=== PATIENT | female | born 2000 | race Caucasian/White ===

== ENCOUNTER 2023-04-01 19:28 | Inpatient (IN) | payer OTHER ==
[~2023-04-01] VITALS: Ht 157.5 cm; Wt 88.5 kg
--- NOTE | 2023-04-01 19:30 | NUR ---
BIBA TO BED #9
[2023-04-01 19:33] VITALS: BP 130/79; PULSE 102; RESP 20; TEMP 99.2; O2SAT 97
--- NOTE | 2023-04-01 19:33 | NUR ---
ERMD evaluating patient at this time
[2023-04-01 20:07] LABS: BASOPHILS # (AUTO) 0.1 K/uL (0.00-0.22); BASOPHILS % (AUTO) 0.9 % (0.0-2.0); EOSINOPHILS # (AUTO) 0.1 K/uL (0-0.4); EOSINOPHILS % (AUTO) 1.2 % (0.0-4.0); HEMATOCRIT 27.1 % (36-48); HEMOGLOBIN 9.1 g/dL (12.0-16.0); LYMPHOCYTES # (AUTO) 2.4 K/uL (2.5-16.5); LYMPHOCYTES % (AUTO) 33.3 % (20.5-51.1); MEAN CORPUSCULAR HEMOGLOBIN 27 pg (27-31); MEAN CORPUSCULAR HGB CONC 34 g/dL (33-37); MEAN CORPUSCULAR VOLUME 80.4 fL (80-94); MONOCYTES # (AUTO) 0.5 K/uL (0.8-1.0); MONOCYTES % (AUTO) 6.8 % (1.7-9.3); NEUTROPHILS # (AUTO) 4.2 K/uL (1.8-7.7); NEUTROPHILS % (AUTO) 57.8 % (42.2-75.2); PLATELET COUNT (AUTO) 437 K/uL (140-450); RED BLOOD CELL COUNT(AUTO) 3.37 MIL/uL (4.20-5.40); RED CELL DISTRIBUTION WIDTH 13.6 % (11.6-13.7); WHITE BLOOD COUNT (AUTO) 7.3 K/uL (4.8-10.8)
--- NOTE | 2023-04-01 20:15 | NUR ---
Pt assisted to restroom via wheelchair
[2023-04-01 20:28] LABS: APPEARANCE,URINE SL CLOUDY (CLEAR); BILIRUBIN,URINE NEGATIVE (NEGATIVE); BLOOD, URINE 3+ (NEGATIVE); COLOR,URINE RED (YELLOW); LEUKOCYTE ESTERASE ,URINE 2+ (NEGATIVE); NITRITE, URINE POSITIVE (NEGATIVE); UGLUCOSE NEGATIVE (NEGATIVE)
[2023-04-01 20:47] LABS: RBC,URINE TOO NUMEROUS TO COUN /HPF (0-5)
[2023-04-01 20:53] LABS: ANION GAP 13.3 (8-16); CARBON DIOXIDE 28.3 mmol/L (21-32); CREATININE 0.6 mg/dL (0.6-1.3); POTASSIUM 3.6 mmol/L (3.5-5.1); TOTAL BILIRUBIN 0.2 mg/dL (0.0-1.0)
[2023-04-02] MEDS: MISOPROSTOL 200 MCG TAB PO SCH ×6 (00:14→20:00)
[2023-04-02] MEDS ORDERED: HYDROcodone/APAP 5/325 MG 1 TAB TAB PO PRN (01:30)
[2023-04-02] MEDS ORDERED: ONDANSETRON 4 MG/2 ML VIAL IVP PRN ×2 (01:30→21:45)
[2023-04-02] MEDS: NACL 0.9% 1,000 ML IV SCH ×2 (02:02→14:08)
[2023-04-02 02:15] VITALS: PULSE 80
--- NOTE | 2023-04-02 02:19 | NUR ---
Report given to Shane BARRON
[2023-04-02 02:30] VITALS: PULSE 61; RESP 15
[2023-04-02 04:00] VITALS: BP 90/32; PULSE 61; PULSE 66; RESP 15; TEMP 98.4; O2SAT 99
--- NOTE | 2023-04-02 07:15 | NUR ---
RECEIVED REPORT FROM REFINERY TECHNICIAN NURSE FOR CONTINUITY OF CARE. PT IN BED AT THIS TIME ON HER PHONE. RESPIRATIONS ARE EVEN AND UNLABORED ON ROOM AIR. NO SIGNS OF DISTRESS NOTED. PT IS ALERT AND ORIENTED X4, ABLE TO VERBALIZE NEEDS, ABLE TO FOLLOW COMMANDS. PT IS ON CARDIAC MONITORING AT THIS TIME, SR. ABD IS NONTENDER, NONDISTENDED WITH BOWEL SOUNDS PRESENT IN ALL QUADRANTS. PT IS NPO AT THIS TIME, AWAITING CONSULT WITH DR VALDES. PT IS CONTINENT OF BOWEL AND BLADDER. SKIN IS WARM, DRY, AND INTACT. NO COMPLAINTS OF PAIN OR DISCOMFORT AT THIS TIME. CALL LIGHT WITHIN REACH. ALL SAFETY MEASURES IN PLACE.
[2023-04-02 08:00] VITALS: BP 97/61; PULSE 57; PULSE 80; RESP 17; TEMP 98.9; O2SAT 98
--- NOTE | 2023-04-02 08:39 | NUR ---
PATIENT HAS BEEN SCREENED AND CATEGORIZED LOW NUTRITION RISK. PATIENT WILL BE SEEN WITHIN 7 DAYS OF ADMISSION. 04/09/[address]
--- NOTE | 2023-04-02 09:51 | NUR ---
ADMINISTERED SCHEDULED MEDICATIONS. EDUCATED PT ON MEDS ADMINISTERED. PT VERBALIZED UNDERSTANDING. PT TOLERATED WELL.
--- NOTE | 2023-04-02 11:35 | NUR ---
INFORMED DR VALDES OF CONSULT WITH PT AND MADE HIM AWARE THAT PER DR LESTER, HE WAS WONDERING IF DR VALDES WAS PLANNING TO DO ANY SURGERY ON PT TODAY; PT IS NPO AND STATING SHE IS HUNGRY. PER DR VALDES, HE STATES HE NEEDS TO SEE PT FIRST AND TO CONTINUE WITH NPO AT THIS TIME. DR VALDES STATES HE WILL BE HERE TO SEE PT THIS AFTERNOON. UPDATED PT.
[2023-04-02 12:00] VITALS: BP 107/63; PULSE 56; PULSE 69; RESP 17; TEMP 98.7; O2SAT 100
--- NOTE | 2023-04-02 13:48 | NUR ---
DC [age] YRS OLD FEMALE PATIENT WAS ADMITTED FROM HOME WITH A DX OF RETAINED PRODUCTS OF CONCEPTION. PATIENT HAS NO MEDICAL HX. TRANSVAGINAL US SHOWED HETEROGENEOUS MATERIAL IS PRESENT WITHIN THE ENDOMETRIAL CANAL. ADMINISTERED IVF AND PAIN MEDICATION. CONSULTED WITH DR VALDES OB-CELLAR SUPERVISOR. DC PLAN TO GO HOME WHEN STABLE. CM TO FOLLOW
--- NOTE | 2023-04-02 13:55 | NUR ---
DID ROUNDS ON PT. PT IN BED ON HER PHONE. NO COMPLAINTS OF PAIN OR DISCOMFORT AT THIS TIME.
[2023-04-02 16:00] VITALS: BP 98/62; PULSE 61; PULSE 70; RESP 17; TEMP 98.4; O2SAT 99
--- NOTE | 2023-04-02 17:20 | NUR ---
PT HUNGRY, GETTING ANXIOUS, ASKING WHAT TIME WILL DR VALDES COME AND SEE HER. DR VALDES MADE AWARE. PER DR VALDES, PT WILL NEED SUCTION D&C TONIGHT. WILL UPDATE PT.
--- NOTE | 2023-04-02 19:09 | NUR ---
ENDORSED PT TO ELECTRICAL ENGINEERING TECHNICIAN NURSECARROLL, FOR CONTINUITY OF CARE. PT IS STABLE.
--- NOTE | 2023-04-02 19:10 | NUR ---
RECEIVED REPORT FROM DAY SHIFT NURSE QUETA ÁLVAREZ FOR CONTINUITY OF CARE. PT SITTING IN BED WITH VISITOR AT BEDSIDE. PT A/A/O. AMBULATORY. ABLE TO COMMUNICATE NEEDS. RESPIRATIONS EVEN AND UNLABORED ON RA. NO COMPLAINTS OF PAIN. POC DISCUSSED. PT VERBALIZED UNDERSTANDING. REPORT GIVEN TO BEATRICE KIRAN. CALL LIGHT WITHIN REACH. SAFETY PRECAUTIONS IN PLACE.
--- NOTE | 2023-04-02 19:23 | NUR ---
PT PICKED-UP FOR SURGERY. PT IS STABLE.
[2023-04-02] MEDS ORDERED: SEVOFLURANE 250 ML BTL INH ONE ×2 (20:56)
[2023-04-02] MEDS ORDERED: PROPOFOL 200 MG/20 ML VIAL IV ONE ×4 (20:56→21:30)
[2023-04-02] MEDS ORDERED: KETOROLAC 30 MG/ML VIAL ONE ×3 (20:56→21:22)
[2023-04-02] MEDS ORDERED: ONDANSETRON 4 MG/2 ML VIAL ONE ×3 (20:56→21:21)
[2023-04-02] MEDS ORDERED: fentaNYL citrate 0.05 MG/ML VIAL ONE (20:59)
[2023-04-02] MEDS ORDERED: METOCLOPRAMIDE 10 MG/2 ML INJ VIAL ONE (21:21)
[2023-04-02] MEDS ORDERED: hydrALAZINE 20 MG/ML VIAL IVP PRN (21:45)
[2023-04-02] MEDS ORDERED: LACTATED RINGERS 1,000 ML IV SCH (21:45)
[2023-04-02] MEDS ORDERED: HYDROmorphone 1 MG/ML AMP IVP PRN (21:45)
[2023-04-02] MEDS ORDERED: LABETALOL 20 MG/4 ML VIAL IVP PRN (21:45)
--- NOTE | 2023-04-02 22:30 | NUR ---
PT BACK FROM OR. PT AWAKE, RESPONSIVE. V/S 105/81, 94, 97.9, 20, 100%. NO COMPLAINTS OF PAIN. PT STATED THAT SHE WAS VERY HUNGRY AND THIRSTY. RECEIVED AN ORDER FOR REGULAR DIET. GAVE PT FOOD SENT BY FAMILY. EDUCATED PT REGARDING EATING CAUTIOUSLY FOR PT POST-ANESTHESIA. PT VERBALIZED UNDERSTANDING. PT CLOSELY MONITORED.
[2023-04-03] VITALS: BP 110/63; PULSE 80; PULSE 91; RESP 20; TEMP 97.8; O2SAT 99
[2023-04-03] MEDS: NACL 0.9% 1,000 ML IV SCH (03:14)
[2023-04-03 03:43] VITALS: PULSE 79
[2023-04-03 04:00] VITALS: BP 104/59; PULSE 77; RESP 18; TEMP 97.7; O2SAT 99
--- NOTE | 2023-04-03 07:08 | NUR ---
GAVE BEDSIDE REPORT TO BEATRICE NAGEL FOR CONTINUITY OF CARE. PT IS STABLE.
--- NOTE | 2023-04-03 07:09 | NUR ---
RECEIVED REPORT FROM JUNIOR BUYER NURSE FOR CONTINUITY OF CARE. PT IS AWAKE, NO SIGN OF DISTRESS. CALL LIGHT WITHIN REACH.
[2023-04-03 08:00] VITALS: BP 116/56; PULSE 51; PULSE 75; PULSE 86; RESP 16; TEMP 98.3; O2SAT 100
[2023-04-03 10:27] VITALS: BP 116/56; PULSE 75; RESP 16; TEMP 98.3
--- NOTE | 2023-04-03 11:25 | NUR ---
PT IS DISCHARGED, WALKED OUT OF THE UNIT AND WILL BE PICKED UP BY HER FATHER. IV AND ID BAND REMOVED. DISCHARGE PAPERS GIVEN TO PT.
--- NOTE | 2023-04-03 12:51 | NUR ---
CALLED [facility] ([facility]] LOCATED AT [address] [address]. SPOKE WITH ANGEL WHO WAS ABLE TO HELP ME SCHEDULE A FOLLOW UP HOSPITAL APPOINTMENT FOR 04/17/2023 AT 1330. CALLED PATIENT WHO IS AWARE OF THE ABOVE INFORMATION.
== END 2023-04-03 11:25 | disposition home or self-care (01) | DRG 543 ==
LOC: MED 19:28 → MTU 04-02 01:32
PROVIDERS: ADMIT Hospitalist; ATTEND Hospitalist
PROC: 10D17ZZ Extraction of Products of Conception, Retained, Via Natural or Artificial Opening (ICD-10-PCS; principal; 2023-04-02 19:30)
DX: O03.4 Incomplete spontaneous abortion without complication (principal); D62 Acute posthemorrhagic anemia; O03.1 Delayed or excessive hemorrhage following incomplete spontaneous abortion; N39.0 Urinary tract infection, site not specified; O03.38 Urinary tract infection following incomplete spontaneous abortion
CPT/HCPCS: 36415; 76830; 80053; 81001; 85025; 86886; 86900; 86901; 87081; 87086; 88305; 99285; J1885; J2405; J2704; J2765; J3010; J7030; Q0092